=== PATIENT | female | born 1950 | race Caucasian/White ===

== ENCOUNTER 2024-03-17 08:00 | Outpatient (CLI) | payer MEDICARE ==
[2024-03-17 22:24] LABS: BACTERIAL VAGINOSIS DNA NEGATIVE (NEGATIVE); CANDIDA GLABRATA DNA NEGATIVE (NEGATIVE); CANDIDA GROUP DNA NEGATIVE (NEGATIVE); CANDIDA KRUSEI DNA NEGATIVE (NEGATIVE); TRICHOMONAS VAGINALIS DNA NEGATIVE (NEGATIVE)
== END 2024-03-17 23:59 | disposition home or self-care (01) ==
LOC: LAB 08:00
PROVIDERS: ATTEND Registered Nurse
DX: R10.2 Pelvic and perineal pain (principal); R30.0 Dysuria
CPT/HCPCS: 81514; 87086